=== PATIENT | female | born 1960 | race Caucasian/White ===

== ENCOUNTER 2023-01-15 09:44 | Inpatient (IN) ==
[2023-01-15] MEDS ORDERED: Albuterol/Ipratropium NEB.SOL (2.5/0.5 MG) 3 ML NEB.SOLN ONE (09:46)
[2023-01-15] MEDS ORDERED: Ondansetron 4 mg VIAL 2 MG/ML 2 ml VIAL IV PRN (09:57)
[2023-01-15] MEDS ORDERED: Furosemide 20 mg/2 ml IV VIAL IV SLOW PU ONE (09:57)
[2023-01-15 10:11] LABS: PCO2 Arterial 33 mmHg (35-45); PO2 Arterial 112 mmHg (80-100)
[2023-01-15 11:51] LABS: HDL Cholesterol 72.2 mg/dL
[2023-01-15] MEDS ORDERED: cefTRIAXone 1 gm/50 mL D5W 1 GM/50 ML BAG IV ONE (11:52)
[2023-01-15] MEDS ORDERED: Azithromycin 500 mg/250 ml NS 500 MG/250 ML BAG IVPB ONE (11:53)
[2023-01-15 12:26] LABS: TSH Ultra Thyroid Stim Horm 1.17 mcIU/mL (0.34-5.60)
[2023-01-15 13:06] LABS: High Sensitivity Troponin 1 Hr 1062 pg/mL (<15)
[2023-01-15] MEDS ORDERED: Senna TAB 8.6 mg TAB PO PRN (13:59)
[2023-01-15 15:36] LABS: Calcium 9.5 mg/dL (8.6-10.3); Creatinine, Serum 1.22 mg/dL (0.51-0.95); Potassium 4.1 mmol/L (3.5-5.0); eGFR CKD-EPI 49.9 (>60)
[2023-01-15] MEDS ORDERED: Metoclopramide 5 MG/ML VIAL (10 mg) IV ONE (16:32)
[2023-01-16 02:25] LABS: ABS Lymphocytes 1.1 10^3/uL (1.0-4.8); ABS Monocytes 0.5 10^3/uL (0.0-0.9); ABS Neutrophils 9.2 10^3/uL (1.5-7.6); Eosinophil % 0.1 %; Hematocrit 41.2 % (35-45); Hemoglobin 14.3 g/dL (11.5-14.3); Lymphocyte % 9.9 %; Mean Corpuscular Hemoglobin 31.9 pg (27-33); Mean Corpuscular Hgb Conc 34.6 g/dL (31-36); Mean Corpuscular Volume 92.4 fL (80-97); Mean Platelet Volume 7.9 fL (7.5-11.2); Platelet Count 287 10^3/uL (150-450); Red Blood Count 4.46 10^6/uL (3.63-4.92); Red Cell Distribution Width 14.5 % (12-17); White Blood Count 10.7 10^3/uL (3.8-11.8)
[2023-01-16 02:41] LABS: Albumin 3.5 g/dL (3.2-5.2); Albumin/Globulin Ratio 1.3 (1-3); Calcium 8.7 mg/dL (8.6-10.3); Creatinine, Serum 1.63 mg/dL (0.51-0.95); Globulin 2.7 g/dL (2-4); Phosphorus 4.7 mg/dL (2.5-5.0); Potassium 3.8 mmol/L (3.5-5.0); Total Bilirubin 0.9 mg/dL (0.2-1.0); Total Protein 6.2 g/dL (6.4-8.9); eGFR CKD-EPI 35.2 (>60)
[2023-01-16] MEDS ORDERED: Iodixanol (CONTRAST) 320 MG/ML 100 ML SDV IV ONE (02:45)
[2023-01-16 02:58] LABS: Magnesium 1.9 mg/dL (1.9-2.7)
[2023-01-16] MEDS ORDERED: Magnesium Sulfate IV 1GM/100ML 1 GM/100 ML BAG IV ONE ×2 (03:05→06:56)
[2023-01-16 03:54] LABS: Urine Appearance Cloudy; Urine Bilirubin Negative (Negative); Urine Blood Negative (Negative); Urine Color Yellow; Urine Glucose Negative (Negative); Urine Ketones 1+ (Negative); Urine Nitrite Negative (Negative); Urine Protein 2+(100 mg/dL) (Negative); Urine Specific Gravity 1.027 (1.002-1.030); Urine Urobilinogen Negative (Negative)
[2023-01-16 03:58] LABS: Urine Bacteria Absent (Absent); Urine Red Blood Cell Absent (Absent); Urine Squamous Epithelial Cell Present (Absent); Urine White Blood Cell Absent (Absent)
[2023-01-16] MEDS: Norepinephrine 16MCG/ML BAGD5W 4,000 MCG/250 ML BAG IV SCH ×2 (04:11→09:40)
[2023-01-16] MEDS ORDERED: Lidocaine 1% VIAL 10 MG/ML VIAL 30 ML ONE (05:23)
[2023-01-16] MEDS ORDERED: Potassium Chlor 20 meq TAB.ER PO ONE (06:56)
[2023-01-16] MEDS ORDERED: Sulfur Hexaflouride MICROSPHR 25 MG VIAL ONE (08:19)
[2023-01-16] MEDS ORDERED: Azithromycin 500 mg/250 ml NS 500 MG/250 ML BAG IVPB SCH (12:00)
[2023-01-16] MEDS: cefTRIAXone 1 gm/50 mL D5W 1 GM/50 ML BAG IV SCH (12:19)
[2023-01-17] MEDS: Norepinephrine 16MCG/ML BAGD5W 4,000 MCG/250 ML BAG IV SCH (00:05)
[2023-01-17 04:26] LABS: ABS Basophils 0.1 10^3/uL (0.0-0.1); ABS Eosinophils 0.2 10^3/uL (0.0-0.5); ABS Lymphocytes 1.9 10^3/uL (1.0-4.8); ABS Monocytes 0.6 10^3/uL (0.0-0.9); ABS Neutrophils 3.6 10^3/uL (1.5-7.6); Hematocrit 36.8 % (35-45); Lymphocyte % 30.3 %; Mean Corpuscular Hemoglobin 32.5 pg (27-33); Mean Corpuscular Hgb Conc 35.3 g/dL (31-36); Mean Corpuscular Volume 92.1 fL (80-97); Mean Platelet Volume 7.5 fL (7.5-11.2); Platelet Count 265 10^3/uL (150-450); Red Blood Count 3.99 10^6/uL (3.63-4.92); Red Cell Distribution Width 14.3 % (12-17); White Blood Count 6.4 10^3/uL (3.8-11.8)
[2023-01-17 04:41] LABS: Calcium 8.1 mg/dL (8.6-10.3); Creatinine, Serum 0.91 mg/dL (0.51-0.95); Magnesium 2.2 mg/dL (1.9-2.7); Potassium 3.7 mmol/L (3.5-5.0); eGFR CKD-EPI 70.9 (>60)
[2023-01-17] MEDS ORDERED: Potassium Chlor 20 meq TAB.ER PO ONE (04:59)
[2023-01-17] MEDS: cefTRIAXone 1 gm/50 mL D5W 1 GM/50 ML BAG IV SCH (12:00)
[2023-01-18 04:27] LABS: ABS Eosinophils 0.1 10^3/uL (0.0-0.5); ABS Lymphocytes 1.7 10^3/uL (1.0-4.8); ABS Monocytes 0.5 10^3/uL (0.0-0.9); ABS Neutrophils 2.7 10^3/uL (1.5-7.6); ABS Nucleated RBC 0.01 10^3/ul; Eosinophil % 2.8 %; Hematocrit 35.3 % (35-45); Hemoglobin 12.1 g/dL (11.5-14.3); Mean Corpuscular Hgb Conc 34.3 g/dL (31-36); Mean Corpuscular Volume 93.5 fL (80-97); Mean Platelet Volume 7.7 fL (7.5-11.2); Nucleated Red Blood Cells % 0.2 /100 WBC (0.0-0.4); Platelet Count 209 10^3/uL (150-450); Red Blood Count 3.77 10^6/uL (3.63-4.92); Red Cell Distribution Width 14.5 % (12-17); White Blood Count 5.1 10^3/uL (3.8-11.8)
[2023-01-18 04:42] LABS: Calcium 8.2 mg/dL (8.6-10.3); Creatinine, Serum 0.79 mg/dL (0.51-0.95); Potassium 4.2 mmol/L (3.5-5.0)
[2023-01-18] MEDS ORDERED: Enoxaparin 40 MG/0.4 ML SYR SUBCUT SCH ×2 (09:00)
[2023-01-18 11:36] VITALS: BP 123/93
[2023-01-18] MEDS: cefTRIAXone 1 gm/50 mL D5W 1 GM/50 ML BAG IV SCH (12:36)
== END 2023-01-18 12:45 | disposition home or self-care (01) | DRG 133 ==
LOC: ED 09:44 → EDHOLD 09:58 → SUATTDRO 09:58 → ICU 11:32
PROVIDERS: ADMIT Internal Medicine; ATTEND Surgery Surgical Critical Care